=== PATIENT | male | born 1940 | race Caucasian/White ===

== ENCOUNTER 2021-02-03 06:58 | Observation (INO) | payer MEDICARE ==
[~2021-02-03] VITALS: Ht 177.8 cm; Wt 82.9 kg
--- NOTE | 2021-02-03 08:40 | NUR ---
ARRIVAL TO UNIT AND INITIAL ASSESSMENT: PATIENT ARRIVED TO UNIT JUST PRIOR TO CHANGE OF SHIFT. PATIENT IS ALERT AND ORIENTED X4. PATIENT DENIES CHEST PAIN OR ANY DISCOMFORT. PATIENT DENIES DIZZINESS AND SHORTNESS OF BREATH. PATIENT SITTING CALMLY IN THE BED WITH NO APPARENT SIGNS OF DISTRESS. PATIENT REPORTS "BALANCE ISSUES". PATIENT UP WITH FWW AND RN TO THE BATHROOM. PATIENT HAS AN IRREGULAR GAIT. PATIENT REPORTS THIS IS HIS BASELINE. NO CHEST PAIN, DIZZINESS OR SHORTNESS OF BREATH WITH ACTIVITY.
[2021-02-03 12:06] LABS: BASOPHILS ABSOLUTE AUTO 0.04 K/mm3 (0.00-0.23); BASOPHILS PERCENT AUTO 0 % (0-2); EOSINOPHILS ABSOLUTE AUTO 0.01 K/mm3 (0.00-0.68); EOSINOPHILS PERCENT AUTO 0 % (0-6); Hematocrit 37.3 % (37.0-53.0); Hemoglobin 12.5 g/dL (13.5-17.5); IMMATURE GRAN ABSOLUTE AUTO 0.06 K/mm3 (0.00-0.10); IMMATURE GRAN PERCENT AUTO 1 % (0-1); LYMPHOCYTES ABSOLUTE AUTO 1.31 K/mm3 (0.84-5.20); LYMPHOCYTES PERCENT AUTO 12 % (21-46); MONOCYTES ABSOLUTE AUTO 1.31 K/mm3 (0.16-1.47); MONOCYTES PERCENT AUTO 12 % (4-13); Mean Corpuscular HGB 30.5 pg (26.0-34.0); Mean Corpuscular HGB Conc 33.5 g/dL (31.5-36.5); Mean Corpuscular Volume 91 fL (80-100); Mean Platelet Volume 10.7 fL (9.1-12.4); NEUTROPHILS ABSOLUTE AUTO 8.25 K/mm3 (1.96-9.15); NEUTROPHILS PERCENT AUTO 75 % (41-73); Platelet Count 242 K/mm3 (150-400); RDW Coefficient Variation 13.3 % (11.7-14.2); RDW Standard Deviation 45.1 fL (35.1-46.3); White Blood Cell Count 10.98 K/mm3 (4.00-11.30)
[2021-02-03 12:28] LABS: Anion Gap 3 mmol/L (6-16); Blood Urea Nitrogen 13 mg/dL (8-24); Bun/Creatinine Ratio 16.5 (12.0-20.0); CHOL/HDL RATIO 2.4; CO2, Blood 28 mmol/L (21-32); Calcium, Blood 8.6 mg/dL (8.5-10.1); Chloride, Blood 105 mmol/L (98-108); Cholesterol 119 mg/dL (50-200); Creatinine, Blood 0.79 mg/dL (0.60-1.20); Free Thyroxine 0.86 ng/dL (0.70-1.60); Glomerular Filtration Rate >60 (60-); Glucose, Blood 107 mg/dL (70-99); HDL Cholesterol 50 mg/dL (>39); LDL/HDL RATIO 1.2; Low Density Lipoprotein Chol 59 mg/dL (0-110); Potassium, Blood 5.5 mmol/L (3.5-5.5); Sodium, Blood 136 mmol/L (136-145); Triglycerides 50 mg/dL (30-160); Troponin I 0.087 ng/mL (0.000-0.040); Very Low Density Lipoprot Chol 10 mg/dL (6-32)
[2021-02-03 12:31] LABS: Thyroid Stimulating Hormone 0.686 uIU/mL (0.360-4.800)
--- NOTE | 2021-02-03 15:37 | NUR ---
SINUS JUSTO: NOTIFIED DR. Bryce MAIER THAT THE AFTERNOON [place]ART[place] WAS HELD FOR HR OF 53-56. PATIENT DENIES DIZZINESS, SHORTNESS OF BREATH OR CHEST PAIN. CURRENTLY RESTING COMFORTABLY IN HIS BED. DENIES NEEDS. NO NEW ORDERS AT THIS TIME.
--- NOTE | 2021-02-03 18:25 | NUR ---
FOREIGN BODY OBSTRUCTION IN ESOPHAGUS: PATIENT SPITTING AND HACKING IN HIS ROOM. REPORTED TO RN THAT HE HAS A PIECE OF THE MEAT FROM DINNER STUCK IN HIS ESOPHAGUS. PATIENT BREATHING WITHOUT DISTRESS. PATIENT DENIES CHEST PAIN OR DISCOMFORT OTHER THAN OBSTRUCTION IN HIS ESOPHAGUS. HE REPORTS THAT 4 MONTHS AGO HE HAD A PROCEDURE TO STRETCH HIS ESOPHAGUS, BUT THAT IT "DIDN'T LAST LONG". PATIENT REPORTS THAT THIS HAPPENS SOMETIMES. DISCUSSED WITH DR. Bryce MAIER. NEW ORDER FOR GI CONSULT. DISCUSSED WITH DR. HAN AND PLAN SET TO HAVE A PROCEDURE TONIGHT. WHEN RN WENT BACK TO THE ROOM, PATIENT REPORTED THAT THE MEAT HAD PASSED. PATIENT IS NO LONGER SPITTING AND HACKING. PATIENT ASSURED RN THAT IT HAPPENS OCCASIONALLY AND THAT HE IS FINE. DISCUSSED WITH DR. HAN, PROCEDURE HAS BEEN CANCELD AT THIS TIME. DOWN GRADED PATIENT'S DIET TO MECHANICAL SOFT.
--- NOTE | 2021-02-03 18:28 | NUR ---
END OF SHIFT SUMMARY: PATIENT DENIED CHEST PAIN, DIZZINESS OR DISCOMFORT THROUGHOUT THE SHIFT. PATIENT ALERT AND ORIENTED. PATIENT UP TO THE BATHROOM WITHOUT ANY DIZZINESS, CHEST PAIN OR SHORTNESS OF BREATH. MID-MORNING, THE PATIENT CONVERTED FROM AFIB TO SINUS/SINUS JUSTO. PATIENT REMAINED IN SINUS/SINUS JUSTO THROUGHOUT THE SHIFT. PATIENT WORKED WITH PHYSICAL THERAPY AND TOLERATED IT WELL. DURING DINNER, PATIENT EXPERIENCED A PIECE OF FOOD STUCK IN HIS ESOPHAGUS (SEE NURSE'S NOTE). THIS RESOLVED ON ITS OWN. PATIENT DIET CHANGED TO MECHANICAL SOFT. PATIENT DENIES NEED FOR OTHER INTERVENTION AND REPORTS THAT HE SIMPLY WAS EATING TOO FAST.
--- NOTE | 2021-02-04 03:18 | NUR ---
FALL PT GOT OUT OF BED WITHOUT CALLING, ANOTHER NURSE AND A PCT WERE SITTING AT THE NURSE [place] [facility]ER JUST OUTSIDE THE ROOM WHEN THEY SAW HIM APPEAR TO BE UNSTEADY. THEY BOTH RAN IN AND WERE MID FALL CATCHING HIM IN TIME TO STOP HIS HEAD FROM HITTING THE FLOOR WITH THIS RN JOINING THEM AFTER HEARING THE COMOTION. PT EVALUATED AND WAS SHOWING NO SIGNS OF ACUTE DISTRESS OR INJURY, NO PHYSICAL INJURIES NOTED. PT ASSESSTED TO HIS FEET AND WAS ASSISTED TO THE BATHROOM AND THEN BACK TO BED. BED ALARM TURNED ON FOR SAFETY AND PATIENT REMINDED TO CALL FOR AMBULATION ASSISTANCE. WILL CTM.
[2021-02-04 03:45] LABS: BASOPHILS ABSOLUTE AUTO 0.03 K/mm3 (0.00-0.23); BASOPHILS PERCENT AUTO 0 % (0-2); EOSINOPHILS ABSOLUTE AUTO 0.08 K/mm3 (0.00-0.68); EOSINOPHILS PERCENT AUTO 1 % (0-6); Hemoglobin 12.1 g/dL (13.5-17.5); IMMATURE GRAN ABSOLUTE AUTO 0.04 K/mm3 (0.00-0.10); IMMATURE GRAN PERCENT AUTO 1 % (0-1); LYMPHOCYTES ABSOLUTE AUTO 1.88 K/mm3 (0.84-5.20); LYMPHOCYTES PERCENT AUTO 22 % (21-46); MONOCYTES ABSOLUTE AUTO 1.05 K/mm3 (0.16-1.47); MONOCYTES PERCENT AUTO 12 % (4-13); Mean Corpuscular HGB 30.1 pg (26.0-34.0); Mean Corpuscular HGB Conc 33.6 g/dL (31.5-36.5); Mean Corpuscular Volume 90 fL (80-100); Mean Platelet Volume 10.6 fL (9.1-12.4); NEUTROPHILS ABSOLUTE AUTO 5.64 K/mm3 (1.96-9.15); NEUTROPHILS PERCENT AUTO 65 % (41-73); Platelet Count 229 K/mm3 (150-400); RDW Coefficient Variation 13.2 % (11.7-14.2); RDW Standard Deviation 43.8 fL (35.1-46.3); Red Blood Cell Count 4.02 M/mm3 (4.30-5.90); White Blood Cell Count 8.72 K/mm3 (4.00-11.30)
[2021-02-04 04:07] LABS: Anion Gap 6 mmol/L (6-16); Blood Urea Nitrogen 11 mg/dL (8-24); CO2, Blood 27 mmol/L (21-32); Calcium, Blood 8.1 mg/dL (8.5-10.1); Chloride, Blood 103 mmol/L (98-108); Creatinine, Blood 0.78 mg/dL (0.60-1.20); Glomerular Filtration Rate >60 (60-); Glucose, Blood 102 mg/dL (70-99); Potassium, Blood 3.9 mmol/L (3.5-5.5); Sodium, Blood 136 mmol/L (136-145); Troponin I 0.042 ng/mL (0.000-0.040)
--- NOTE | 2021-02-04 06:49 | NUR ---
SHIFT SUMMARY A/O X4, VSS, PT HAD MULTIPLE TRIPS TO THE BATHROOM, HAD A FALL THAT WAS CAUGHT BEFORE HIS HEAD HIT THE FLOOR, NO INJURIES SUSTAINED, PT STABLE POST FALL, VITALS REMAINED AROUND WHAT THEY WERE PRIOR TO THE FALL. NO OTHER ACUTE EVENTS THIS SHIFT. CALL LIGHT IN REACH, WILL CTM AND REPORT TO DAY RN.
[2021-02-04] MEDS ORDERED: METO25 PO (13:02)
[2021-02-04] MEDS ORDERED: LOSA50 PO (13:02)
[2021-02-04] MEDS ORDERED: XARELTO20 MG PO (13:20)
--- NOTE | 2021-02-04 13:48 | NUR ---
DISCHARGE SUMMARY PATIENT ALERT AND ORIENTED THROUGHOUT AM. SBA WITH SUPERVISION AND FWW UP TO BATHROOM AND CHAIR. DENIES SOB AND CHEST PAIN. TOLERATING CARDIAC DIET AND FLUIDS. VOIDING WELL. SINUS JUSTO ON TELE. SALINE LOCKED. TROPONINS TRENDING VERY LOW. DISCHARGE ORDERS OBTAINED. DISCHARGE EDUCATION GIVEN ON NEW RXS, WOUND CARE, AND FOLLOW UP WITH PCP. IV DC'D WNL. PT LEFT UNIT VIA WHEELCHAIR AT 1340 FOR HOME WITH FAMILY.
== END 2021-02-04 13:40 | disposition home or self-care (01) ==
LOC: SURS 06:58
PROVIDERS: Family Medicine; ADMIT Internal Medicine
DX: I48.0 Paroxysmal atrial fibrillation (principal); R07.9 Chest pain, unspecified; I10 Essential (primary) hypertension; R26.81 Unsteadiness on feet; E78.5 Hyperlipidemia, unspecified; Z86.73 Personal history of transient ischemic attack (TIA), and cerebral infarction without residual deficits; Z91.81 History of falling
CPT/HCPCS: 36415; 80048; 80061; 84439; 84443; 84484; 85025; 93306; 96372; 97110; 97161; A9270; G0378; J1650